=== PATIENT | female | born 1955 | race Caucasian/White ===

== ENCOUNTER → 2018-05-03 16:21 | Outpatient (CLI) | payer OTHER, SELFPAY ==
[2018-04-06 09:23] VITALS: BMI 33.7
== END ==
PROVIDERS: Family Provider Family Medicine; PCP Family Medicine; Referring Provider Otolaryngology Otolaryngology/Facial Plastic Surgery; Visit Provider Otolaryngology Otolaryngology/Facial Plastic Surgery
DX: J02.9 Acute pharyngitis, unspecified (principal)
CPT/HCPCS: 87070

== ENCOUNTER → 2018-05-13 07:35 | Outpatient (CLI) | payer OTHER, SELFPAY ==
[2018-04-06 09:23] VITALS: BMI 33.7
--- NOTE | 2018-05-13 07:38 | BI_ITS ---
MAMMOGRAPHY - BILATERAL SCREENING REASON FOR EXAM: Female, 62 years old. Routine annual screening examination. PERTINENT HISTORY: Grandmother with breast cancer. TECHNIQUE: Digital bilateral breast karen (3D mammographic acquisition) in the CC and MLO projections. 2-D mediolateral oblique (MLO) and craniocaudad (CC) views of both breasts were obtained. CAD: Full Field Digital Mammography with Computer Added Detection was performed. COMPARISON: Comparison is made with prior study dated November 09, 2015 and August 26, 2013. FINDINGS: Breast Composition: The breasts are heterogeneously dense, which may obscure small masses. There are no dominant masses or suspicious calcifications. Stable benign-appearing bilateral axillary lymph nodes. No other significant abnormalities are identified. There has been no significant change since the prior study. BI/SCREENING MAMM (CAD), BILAT IMPRESSION: Stable bilateral screening mammogram. Yearly follow-up mammogram recommended. (A) ASSESSMENT CATEGORY: BIRADS Category 2: Benign. A letter regarding these results will be sent to the patient by the facility within 30 days. Approximately 10% of breast cancers are not detected by mammography. A normal mammogram should not delay biopsy of a clinically suspicious abnormality. [id number] Electronically Signed: Shady Stone MD at 10:28 EST , Service support ,
== END ==
PROVIDERS: Family Provider Family Medicine; PCP Family Medicine; Referring Provider Family Medicine; Visit Provider Family Medicine
DX: Z12.31 Encounter for screening mammogram for malignant neoplasm of breast (principal)
CPT/HCPCS: 77063; 77067

== ENCOUNTER → 2018-07-02 10:18 | Outpatient (CLI) | payer OTHER, SELFPAY ==
[2018-04-06 09:23] VITALS: BMI 33.7
== END ==
PROVIDERS: Family Provider Family Medicine; PCP Family Medicine; Referring Provider Otolaryngology Otolaryngology/Facial Plastic Surgery; Visit Provider Otolaryngology Otolaryngology/Facial Plastic Surgery
DX: J32.9 Chronic sinusitis, unspecified (principal)
CPT/HCPCS: 87070; 87205

== ENCOUNTER → 2018-08-07 10:38 | Outpatient (CLI) | payer OTHER, SELFPAY ==
[2018-08-07 08:36] VITALS: BMI 33.7
== END ==
PROVIDERS: Family Provider Family Medicine; PCP Family Medicine; Referring Provider Physician Assistant; Visit Provider Physician Assistant
DX: J02.9 Acute pharyngitis, unspecified (principal)
CPT/HCPCS: 87081

== ENCOUNTER → 2019-03-04 15:21 | Outpatient (CLI) | payer OTHER, SELFPAY ==
[2019-03-02 08:35] VITALS: BMI 33.7
== END ==
PROVIDERS: Family Provider Family Medicine; PCP Family Medicine; Referring Provider Otolaryngology Otolaryngology/Facial Plastic Surgery; Visit Provider Otolaryngology Otolaryngology/Facial Plastic Surgery
DX: J32.9 Chronic sinusitis, unspecified (principal); J02.9 Acute pharyngitis, unspecified
CPT/HCPCS: 87070

== ENCOUNTER 2019-04-01 09:33 | Emergency (ER) | payer OTHER, SELFPAY ==
[2019-03-28 08:46] VITALS: BMI 33.7
[2019-04-01 09:34] VITALS: BP 174/96; PULSE 110; RESP 18; TEMP 36.1; O2SAT 99; BMI 33.3
--- NOTE | 2019-04-01 09:44 | RAD_ITS ---
STUDY: X-RAY CHEST REASON FOR EXAM: Female, 63 years old. Shortness of breath. Follow-up for possible pneumonia. Medication for high blood pressure. TECHNIQUE: Frontal and lateral views of the chest. COMPARISON: None. FINDINGS: Mild hyperexpansion with scarring at the left base. Healed granulomatous calcifications There is no demonstrated pleural abnormality. Borderline cardiomegaly. Normal mediastinum and arnold. Normal visualized pulmonary arteries. Normal visualized aortic arch and descending thoracic aorta. Thoracolumbar spondylosis. Normal visualized ribs, clavicles, and shoulders. There is no demonstrated abnormality of the visualized soft tissue structures of the upper abdomen. RAD/Chest PA and Lateral IMPRESSION: Borderline cardiomegaly with hyperexpansion and scarring at the left base. No acute finding. Electronically Signed: Madhu Chew MD at 10:21 EST , Service support ,
--- NOTE | 2019-04-01 09:44 | ED.VIS.GEN ---
History of Present Illness Chief Complaint: Cough Informant: Patient Onset: Weeks - 2 weeks Context: Gradual Onset Timing: Waxes and wanes Current Severity: Mild Maximum Severity: Moderate Narrative: Patient reports with cough and congestion for the last 2 weeks. She was seen in the now clinic on March 28. She was given a Z-Mckinley and Tessalon Perles. She states she felt like her symptoms initially improved, but have now worsened again over the past 2 days. She is now bringing up green-colored sputum. She denies having fever or chills at home. She has rare, occasional wheezing. She was seen at [facility] at [facility] today where she reportedly was febrile (99.5) with O2 sats of 92 to 95%. She was sent to the ER for an x-ray to rule out pneumonia. - Past Medical History (1) Acute bronchitis Status: Acute Past Medical History - Allergies and Home Meds Allergies/Adverse Reactions: Allergies clarithromycin [From Biaxin] Allergy (Verified 04/01/19 09:35) Unknown levofloxacin [From Levaquin] Allergy (Verified 04/01/19 09:35) Unknown Primary Care Physician: Buster Vargas MD [STAFF PHYSICIAN] - Prior records reviewed: Yes Smoking Status: Former smoker Review of Systems General: Denies: Chills, Fever Eyes: Denies: Visual changes - bilaterally ENT: Reports: Sore throat. Denies: Bilateral ear pain Cardiovascular: Denies: Chest pain Respiratory: Reports: Cough, Sputum. Denies: Dyspnea Gastrointestinal: Denies: Abdominal pain, Nausea, Vomiting, Diarrhea Genitourinary: Denies: Dysuria Musculoskeletal: Denies: Neck pain, Back pain Skin: Denies: Rash Neurological: Denies: Headache Hematologic: Denies: Easy bruising Allergy: Denies: Uticaria Physical Exam Vital Signs/Narrative: Vital Signs Temp Pulse Resp BP Pulse Ox 04/01/19 09:34 96.9 F L 110 H 18 174/96 H 99 Inital Vital Signs reviewed: Yes General: Well nourished, Well developed Head: Normocephalic Eyes: Perrl, EOMI ENT: Moist mucous membranes, No rhinorrhea, TM's clear, - - Mild posterior pharyngeal drainage Neck: Supple Cardiovascular: Regular rate, Regular rhythm Respiratory: No distress, CTA bilaterally Abdomen: Soft, Nontender Back: Nontender Extremities: Nontender Skin: Normal color, No rash Neurological: Alert, Oriented x3 Psychological: Normal affect Diagnostic/Tx/Re-eval Impressions Chest X-Ray 04/01/19 09:44 IMPRESSION: Borderline cardiomegaly with hyperexpansion and scarring at the left base. No acute finding. Electronically Signed: Madhu Chew MD at 10:21 EST , Service support , 04/01/19 09:44 Chest PA and Lateral [RAD] Stat - Medical Decision Making X-ray results are discussed with the patient. She is just completing her Z-Mckinley. She reports that the Tessalon Perles are not helping her cough. She will be written for cough syrup and given an albuterol inhaler she can use at home. She does report intermittent wheezing. She states the nurse practitioner from [facility] to discuss her blood pressure with her. She believes she has been using some [id number] cold medicine that is likely increasing her blood pressure. She will keep a close eye on this over the next week or 2. ED Disposition - Plan for ED Patient: Disposition: Home or Assisted Living Diagnosis: Bronchitis Instructions: BRONCHITIS, No Antibiotic (Adult) Prescriptions: Hydrocodone Bit/Homatropine [Hycodan Syrup] 5 ml PO Q6H PRN PRN #60 mls PRN Reason: Cough Transmission Status: Received by [id number] Albuterol Inhaler [Ventolin Hfa] 1 - 2 puff INHALATION Q4H PRN PRN #1 inhaler PRN Reason: Wheezing Transmission Status: Received by [facility] Referrals: Buster Vargas MD [STAFF PHYSICIAN] -
[2019-04-01 11:14] VITALS: RESP 16
== END 2019-04-01 11:16 | disposition home or self-care (01) ==
PROVIDERS: Emergency Provider Emergency Medicine
DX: J40 Bronchitis, not specified as acute or chronic (principal); Z87.891 Personal history of nicotine dependence
CPT/HCPCS: 71046; 99282

== ENCOUNTER → 2020-02-27 | Outpatient (CLI) | payer MEDICARE, SELFPAY | END | disposition home or self-care (01) | PROVIDERS: PCP Family Medicine; Referring Provider Family Medicine; Visit Provider Family Medicine | DX: J32.9 Chronic sinusitis, unspecified (principal) | CPT/HCPCS: 87635; U0003 ==

== ENCOUNTER → 2020-08-04 07:33 | Outpatient (CLI) | payer MEDICARE, SELFPAY ==
--- NOTE | 2020-08-04 07:37 | BI_ITS ---
MAMMOGRAPHY - BILATERAL SCREENING REASON FOR EXAM: Female, 65 years old. Routine annual screening examination. PERTINENT HISTORY: Grandmother with breast cancer. TECHNIQUE: Digital bilateral breast karen (3D mammographic acquisition) in the CC and MLO projections. 2-D mediolateral oblique (MLO) and craniocaudad (CC) views of both breasts were obtained. CAD: Full Field Digital Mammography with Computer Added Detection was performed. COMPARISON: Comparison is made with prior examination dated 05/13/2018 and 11/09/2015. FINDINGS: Breast Composition: The breasts are heterogeneously dense, which may obscure small masses. There are no dominant masses or suspicious calcifications. Stable small benign appearing bilateral axillary lymph nodes. No other significant abnormalities are identified. There has been no significant change since the prior study. BI/SCREENING MAMM (CAD), BILAT IMPRESSION: Stable bilateral screening mammogram. Yearly follow-up mammogram recommended. (A) ASSESSMENT CATEGORY: BIRADS Category 2: Benign. A letter regarding these results will be sent to the patient by the facility within 30 days. Approximately 10% of breast cancers are not detected by mammography. A normal mammogram should not delay biopsy of a clinically suspicious abnormality. [id number] Electronically Signed: Shady Stone MD at 9:19 EDT , Service support ,
== END ==
PROVIDERS: PCP Family Medicine; Referring Provider Family Medicine; Visit Provider Family Medicine
DX: Z12.31 Encounter for screening mammogram for malignant neoplasm of breast (principal)
CPT/HCPCS: 77067

== ENCOUNTER → 2020-12-15 | Outpatient (CLI) | payer MEDICARE, SELFPAY | END | disposition home or self-care (01) | LOC: LABSPEC 16:51 | PROVIDERS: PCP Family Medicine; Referring Provider Family Medicine; Visit Provider Nurse Practitioner Family | DX: Z20.822 Contact with and (suspected) exposure to COVID-19 (principal) | CPT/HCPCS: 87635; U0005; U0003 ==

== ENCOUNTER 2021-06-21 10:00 | Outpatient (RCR) | payer MEDICARE, SELFPAY ==
--- NOTE | 2021-02-22 16:16 | HP.OTEVAL ---
Patient's Visit Information ANN YAO is a 65 year old F, referred to Occupational Therapy by ANITA Salguero, with a diagnosis of right 5th displaced fx of 5th metacarpal. Date of Evaluation: 02/21/21 Occupational Therapist: Kylie Valdivia, ROSE/Connor, CHT - Subjective This 65 year old female was seen for OT eval with dx of right displaced fx of 5th metacarpal - pt states she fell on 01/09/21. pt states she is released to therapy and in need of custom orthosis to provide support and protection while fx is healing. Pt states she is limited with all ADLs and IADls due to pain and limited ROM - pt states she would like to return to her PLOF. 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 - Pain right hand 4 - ROM MP: right LF -10/45 right RF -5/45 left LF 0/90 left RF 0/90 PIP: right LF -5/30 right 0/60 left LF 0/95 RF 0/90 DIP: right LF 0/15 right RF 0/15 left RF o/50 left LF 0/50 ROM Comments: pt demo with limited right LF and RF ROM - Strength Tax Adjuster: right NT left 50# Lateral Pinch: right NT left 10# Tripod Pinch: right NT left 8# Strength Comments: will test strength at later date - Sensation Sensation Comments: denies - Quick DASH-Disab of Arm,Shoulder& Hand Quick DASH Score: 27.2725 - Goals Goal:: pt will demo at 10 weeks s/p a right cloth shrinking machine operator helper strength of 40# or greater to return to her PLOF with ADLs and IADls by d.c Goal:: pt wll demo the ability to form a composite fist with right hand to increase pts ability to manipulate coins, grasp small objects and use right UE for home mtg and cooking tasks by d.c Goal:: pt will report no pain greater than 2/10 with use of right hand with ADLs and IADls by d/c - Rehabilitation General Assessment: pt currently 6 weeks and 1 day from DOI. pt demo with limited ROM of left digits increasing need of assistance with ADLs and IADls. Pt would benefit from skilled OT services 2xweek for 6 weeks to return pt to PLOF. Today therapist arcenio. custom hand based orthosis to provide support and protection while fx completes healing. Pt demo understanding of orthosis use. Therapist also ed, pt on AROM exercise and edema control. pt demo understanding and agree to POC. Rehabilitation Potential: Good - Anticipated Interventions A/AAROM/PROM, Strengthening, Edema Control, Triggerpoint Release, Modalities, Orthoses, Joint Protection/Energy Conservation, Ergonomic Education, Education re assistive Equipment, Education re Diagnosis, Home Program - Visit Plan Frequency: 1-2x /Week Duration: 6 Weeks TEXT: Thank you for the opportunity to evaluate your patient. For Medicare and Medicare HMO plans, please review the plan of care and approve it. It will need to be FAXED BACK to us at [phone] for Medicare purposes. Please let me know if there are questions or concerns regarding this plan of care. Physician Signature: Date:
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
--- NOTE | 2021-06-14 09:11 | HP.OTDCSUM_ITS ---
It has been my pleasure to treat ANN YAO under orders from ANITA Salguero, for the diagnosis of right 5th displaced fx of 5th metacarpal for a total of 12 visit(s). Please see the following information for a summary of their discharge status. % Improvement: 95 Objective/Function: right LF MCP 80* increase from 60*. right LF PIP 90*. right LF DIP 50*. 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 pt has made good gains with her strength and ROM- pt reports she is 95% IND. 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 PROM. and place and hold. will check measurements for dc Discharge Comments: Pt was seen for 12 OT sessions - following a 5th metacarpal fx- pt doing well and has returned to her IND with ADLs and IADLs . pt agrees to cont. with HEP and agrees with D/c. If there are questions or concerns regarding this patient's occupational therapy, please fell free to call me at [phone]. Thank you for the referral of this patient. Sincerely, Kylie Valdivia, OTR/L, CHT
--- NOTE | 2021-06-21 10:21 | HP.PTDCSUM ---
It has been my pleasure to treat ANN YOA referred by ANITA Salguero, with the diagnosis of LOW BACK PAIN for a total of 10 visit(s). Discharge Date: 06/21/21 Please see the following information for a summary of their discharge status. Subjective: PATIENT REPORTS SHE IS DOING GOOD AND IS ROUTINELY DOING HER HEP. THINKS SHE FEELS READY TO BE DISCHARGED. LOW BACK Pain Intensity (Out of 10): 1 % Improvement: 90 Objective/Function: PATIENT WAS SEEN TODAY FOR RE-ASSESSMENT OF PROGRESS TOWARD THE SET PT GOALS AND THE NEED FOR FURTHER PHYSICAL THERAPY VS READINESS FOR DISCHARGE. PATIENT IS INDEP WITH A HEP AND REPORTS 90% IMPROVEMENT IN HER PAIN. UPON EXAM TODAY ALL PT GOALS HAVE BEEN MET. SHE IS A LITTLE TENTATIVE ABOUT BEING DISCHARGED WITHOUT FOLLOW UP IN A FEW WEEKS BUT I ASSURED HER SHE CAN BE REFERRED BACK TO PT NEEDED/APPRORIATE BY HER PCP. Goal 1:: DECREASE C/O LOW BACK AND RIGHT LE SX'S. Goal Progress: Goal Met Goal 2:: IMPROVE LIFTING, SITTING, TRAVEL AND HOMEMAKING FUNCTION Goal Progress: Goal Met Goal 3:: INSTRUCT IN PROPHYLAXIS Goal Progress: Goal Met Plan: D/C TO HEP AND PHYSICIAN FOLLOW UP NEEDED. PATIENT IS AGREEABLE. If there are questions or concerns regarding this patient's physical therapy, please feel free to call me at [phone]. Thank you for the referral of this patient. Sincerely, Griselda Hill, PT, Cert MDT Balance/Gait/Functional tests - Balance/Special Test Scores Oswestry Low Back Score: 2
== END 2021-06-21 10:41 | disposition home or self-care (01) ==
LOC: PT 10:00
PROVIDERS: PCP Family Medicine
DX: S62.309D Unspecified fracture of unspecified metacarpal bone, subsequent encounter for fracture with routine healing (principal); X58.XXXD Exposure to other specified factors, subsequent encounter
CPT/HCPCS: 97110; 97112; 97140; 97162; 97164; 97166; 97530; 97760

== ENCOUNTER → 2021-08-19 | Outpatient (CLI) | payer MEDICARE, SELFPAY | END | disposition home or self-care (01) | PROVIDERS: PCP Family Medicine; Visit Provider Family Medicine | DX: U07.1 COVID-19 (principal) | CPT/HCPCS: 87635; U0003; U0005 ==

== ENCOUNTER → 2022-12-20 | Outpatient (CLI) | payer MEDICARE, SELFPAY ==
[2022-12-20 13:10] LABS: ALB/GLOB Ratio 1.1 RATIO (0.9-2.4); AST(SGOT) 26 U/L (15-37); Alanine Aminotransfer ALT/SGPT 39 U/L (13-56); Albumin, Serum 3.9 g/dL (3.2-5.0); Alkaline Phosphatase 76 U/L (45-117); Anion Gap 8 (5-15); BUN 11 mg/dL (7-18); BUN/Creat Ratio 14.9 RATIO (10-20); Chloride 110 mmol/L (98-107); Creatinine, Serum 0.74 mg/dL (0.55-1.02); EST Glomerular Filtration Rate 83 mL/min (>60); Est Glom Filt Rate - Afr Amer 101 mL/min (>60); Globulin 3.5 g/dL (2.2-4.2); Glucose 110 mg/dL (74-106); Potassium 4.2 mmol/L (3.5-5.1); Protein, Total 7.4 g/dL (6.4-8.2); Sodium Level 141 mmol/L (136-145)
[2022-12-20 13:15] LABS: Microalbumin,Random Urine 25.1 mg/L (NO RANGE EST.); Microalbumin:Creatinine Ratio 10.7 mg/g CRE (<30 mg/g CRE)
== END | disposition home or self-care (01) ==
LOC: MFPLAB 11:02
PROVIDERS: PCP Family Medicine; Visit Provider Family Medicine
DX: I10 Essential (primary) hypertension (principal)
CPT/HCPCS: 36415; 80053; 82043; 82570

== ENCOUNTER → 2023-09-12 | Outpatient (CLI) | payer MEDICARE, SELFPAY ==
[2023-09-12 10:41] LABS: Erythrocyte Sedimentation Rate 30 mm/hr (0-30)
[2023-09-12 10:46] LABS: Absolute Lymphocyte Count 2.01 X10^3/uL (0.83-4.51); Absolute Neutrophil Count 2.2 X10^3/uL (2.0-7.7); Basophil# 0.05 X10^3/uL; Eosinophil# 0.15 X10^3/uL; Eosinophils% 3.1 % (0-5); Hematocrit 27.5 % (37-47); Hemoglobin 8.8 g/dL (12.0-15.0); Lymphocyte # 2.01 X10^3/ul (0.83-4.51); Lymphocyte % 40.9 % (19-41); Mean Corpuscular Hgb 31.3 pg (27.0-32.0); Mean Corpuscular Volume 97.9 fL (81-99); Mean Platelet Vol. 10.7 fl (6.2-12.0); Monocyte# 0.46 X10^3/uL; Monocyte% 9.4 % (0-10); NRBC Flagged by Analyzer 0 % (0-5); Neutrophil # 2.23 X10^3/uL (2.7-7.7); Neutrophil % 45.4 % (47-70); Platelet Count 491 K/mm3 (150-450); RBC Distribution Width CV 13.6 % (11.6-14.6); RBC Distribution Width SD 49.1 fl (35.1-43.9); Red Blood Count 2.81 M/mm3 (4.2-5.4); White Blood Count 4.9 K/mm3 (4.4-11.0)
[2023-09-12 11:48] LABS: ALB/GLOB Ratio 0.9 RATIO (0.9-2.4); AST(SGOT) 29 U/L (15-37); Alanine Aminotransfer ALT/SGPT 55 U/L (13-56); Albumin, Serum 3.5 g/dL (3.2-5.0); Alkaline Phosphatase 80 U/L (45-117); Anion Gap 8 (5-15); BUN 11 mg/dL (7-18); BUN/Creat Ratio 13.1 RATIO (10-20); CRP < 2.90 mg/L (0.0-3.0); Calcium,Total 9.3 mg/dL (8.5-10.1); Chloride 108 mmol/L (98-107); Creatinine, Serum 0.84 mg/dL (0.55-1.02); EST Glomerular Filtration Rate 71 mL/min (>60); Est Glom Filt Rate - Afr Amer 86 mL/min (>60); Glucose 111 mg/dL (74-106); Iron 16 ug/dL (50-170); Potassium 3.6 mmol/L (3.5-5.1); Protein, Total 7.5 g/dL (6.4-8.2); Sodium Level 139 mmol/L (136-145); T4 Free Direct 0.98 ng/dL (0.76-1.46)
== END | disposition home or self-care (01) ==
LOC: MFPLAB 08:09
PROVIDERS: PCP Family Medicine; Visit Provider Family Medicine
DX: K58.9 Irritable bowel syndrome, unspecified (principal); R53.81 Other malaise
CPT/HCPCS: 36415; 80053; 83540; 84439; 85025; 85652; 86140

== ENCOUNTER → 2024-04-24 | Outpatient (CLI) | payer MEDICARE, SELFPAY ==
--- NOTE | 2024-04-24 10:12 | BI_ITS ---
MAMMOGRAPHY - BILATERAL SCREENING REASON FOR EXAM: Female, 68 years old. Routine annual screening examination. PERTINENT HISTORY: Grandmother with breast cancer. TECHNIQUE: Digital bilateral breast shoshana (3D mammographic acquisition) in the CC and MLO projections. 2-D mediolateral oblique (MLO) and craniocaudad (CC) views of both breasts were obtained. CAD: Full Field Digital Mammography with Computer Added Detection was performed. COMPARISON: Comparison is made with prior study dated August 04, 2020 and May 13, 2018. FINDINGS: Breast Composition: The breasts are heterogeneously dense, which may obscure small masses. There are no dominant masses or suspicious calcifications. Stable small benign-appearing lateral axillary lymph nodes. No other significant abnormalities are identified. There has been no significant change since the prior study. BI/SCRN MAMM (CAD)W/SHOSHANA BILAT IMPRESSION: Stable bilateral screening mammogram. Yearly follow-up mammogram recommended. (A) ASSESSMENT CATEGORY: BIRADS Category 2: Benign. A letter regarding these results will be sent to the patient by the facility within 30 days. Approximately 10% of breast cancers are not detected by mammography. A normal mammogram should not delay biopsy of a clinically suspicious abnormality. [id number] Electronically Signed: Shady Stone MD at 11:10 EST ,
== END | disposition home or self-care (01) ==
LOC: OPBI 10:10
PROVIDERS: PCP Family Medicine; Referring Provider Family Medicine; Visit Provider Family Medicine
DX: Z12.31 Encounter for screening mammogram for malignant neoplasm of breast (principal); I10 Essential (primary) hypertension
CPT/HCPCS: 77063; 77067

== ENCOUNTER 2024-08-28 07:30 | Day surgery (SDC) | payer MEDICARE, SELFPAY ==
[2024-08-28] VITALS (7 sets, daily range): BP systolic 125–176; BP diastolic 57–85; PULSE 70–76; RESP 16–18; TEMP 36.1–36.6; O2SAT 98–99; BMI 38.9
[2024-08-28] MEDS: Lactated Ringers 1,000 ML 15 ML IV (08:01)
--- NOTE | 2024-08-28 08:12 | PRE.ANES_ITS ---
ASA Classification* ASA Classification ASA Classification: 2 (HTN, GERD, Anemia. Patient has elevated BP in preop. Please be mindful not to let her BP drop below SBP 100 during case.) Assessment & Plan Anesthesia* Anesthesia Assessment Anesthesia Assessment: Discussed sedation and/or anesthesia options, risks, benefits, and alternatives with patient/parents/legal guardian/POA. Questions invited. The patient/parents/legal guardian/POA seems to understand and agrees to proceed with anesthesia plan. Reviewed the physical assessment, medical history, allergy history and patient home medications list prior to surgery/procedure/anesthetic and documented any changes. Performed airway and anesthesia risk assessments. Anesthesia Type Anesthesia Type: General History Source History Obtained from:: Patient and Chart Anesthesia Focused Assessment* Temperature: 96.9 F Pulse Rate: 74 Blood Pressure: 176/73 Respiratory Rate: 18 Pulse Ox: 98 Oxygen Delivery Method: Room Air Airway Assessment Mouth opens: >3 cm Mallampati Score: II Teeth Condition: Intact Neck Range of motion (ROM): Full ROM Focused Labs Anesthesia Preop lab: CBC WBC 4.9 K/mm3 (4.4-11.0) 09/12/23 08:12 09/12/23 RBC 2.81 M/mm3 (4.2-5.4) L 09/12/23 08:12 09/12/23 Hgb 8.8 g/dL (12.0-15.0) L 09/12/23 08:12 09/12/23 Hct 27.5 % (37-47) L 09/12/23 08:12 09/12/23 Plt Count 491 K/mm3 (150-450) H 09/12/23 08:12 09/12/23 CHEMISTRY Potassium 3.6 mmol/L (3.5-5.1) 09/12/23 08:12 09/12/23 Sodium 139 mmol/L (136-145) 09/12/23 08:12 09/12/23 Magnesium 2.2 mg/dL (1.8-2.4) 05/13/13 08:59 05/13/13 BUN 11 mg/dL (7-18) 09/12/23 08:12 09/12/23 Creatinine 0.84 mg/dL (0.55-1.02) 09/12/23 08:12 09/12/23 Glucose 111 mg/dL (74-106) H 09/12/23 08:12 09/12/23 TSH 1.99 uIU/mL (0.358-3.74) 05/13/13 08:59 COAG Pre-Assessment Diagnosis/Proposed Procedure Planned Operative Procedure(s): COLONOSCOPY/EGD Anesthesia History 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 When Was Last Pacemaker Check QUESTION #4 FULL TEXT: You/Your Family Experience fever (hyperthermia) with Anesthesia Last Oral Intake Last Oral intake: Last Oral Intake NPO since 04:00 08/28/24 07:52 Meds taken in AM with sips of No 08/28/24 07:52 water? Meds patient instructed to take am of surgery PONV PONV - hydrology professor: PONV - hydrology professor Female Yes 08/27/24 12:30 HX of Motion Sickness No 08/27/24 12:30 HX of N/V After Surgery No 08/27/24 12:30 Non-Smoker Yes 08/27/24 12:30 Duration of Surgery greater No 08/27/24 12:30 than 60 minutes Number of Risk Factors 2 08/27/24 12:30 PONV Score Moderate Risk 08/27/24 12:30 Height & Weight Height & Weight: Anesthesia: Height & Weight Height 5 ft 4 in 08/28/24 07:52 Weight: 102.965 kg 08/28/24 07:52 Body Mass Index (BMI) 38.9 08/28/24 07:52 Respiratory Assessment Respiratory Assessment - hydrology professor: Respiratory Tract Infection Hx - hydrology professor Hx Respiratory Tract Infection No 08/27/24 12:30 STOP Sleep Apnea STOP Sleep Apnea - hydrology professor: STOP Sleep Apnea - hydrology professor Hx Hypertension Yes: CONTROLLED ON MED 08/27/24 12:30 Hx Sleep Apnea No 08/27/24 12:30 CPAP BIPAP Do you snore loudly (louder No 08/27/24 12:30 than talking or can be heard Do you often feel tired/ No 08/27/24 12:30 fatigued/ sleepy during daytime? Has anyone observed you stop No 08/27/24 12:30 breathing during sleep? STOP Results Negative 08/27/24 12:30 QUESTION #5 FULL TEXT : Do you snore loudly (louder than talking or can be heard through closed doors)? 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 Specify any problems Hx of Preganancy in last 3 No 08/27/24 12:30 Months Nurse Filling Out Transfusion VCHRISTIN 08/27/24 12:30 & Questions: Date: 08/27/24 08/27/24 12:30 Time: 12:31 08/27/24 12:30 Patient unable to answer at this time (ie. 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 professor: /Reproductive Hx- hydrology professor Hx Now Gestational Age (in weeks): EDC: Hx Hx Para Hx Section SAB Active Medications Active Medications: Current Medications Generic Name Dose Route Start Last Admin Trade Name Freq PRN Reason Stop Dose Admin Lactated Ringer's 1,000 mls @ 15 mls/hr 08/28/24 07:45 08/28/24 08:01 IV 15 mls/hr .Q48H JOSE DAVID Administration PFSH Medical History (Updated 08/27/24 @ 12:30 by Sharon White) Wears glasses Post-menopausal Cancer Anxiety Alcohol use Arthritis Back pain History of hiatal hernia History of IBS Gastric reflux Non-smoker Leg cramps Displaced fracture of fifth metacarpal bone of right hand Diarrhea Hemorrhoids HTN (hypertension) Home Medications ?Medication ?Instructions ?Recorded ?Last Taken ?Type multivitamin (Daily Multi-Vitamin 1 tab PO DAILY 01/1008/26/24 History tablet) bisoprolol 10 1 tab PO QDAY 08/30/2308/26 History mg-hydrochlorothiazide 6.25 mg tablet lansoprazole 15 mg capsule,delayed 15 mg PO DAILY PRN GERD 08/30/23 Unknown History release (Prevacid 24Hr) milk thistle 500 mg capsule 500 mg PO DAILY 08/30/23 0 08/26/24 History cyanocobalamin (vitamin B-12) 50 50 mcg PO DAILY 08/2708/26/24 History mcg tablet (Vitamin B-12) Allergy/AdvReac Type Severity Reaction Status Date / Time clarithromycin (From Biaxin) Allergy Unknown Verified 08/28/24 07:49 levofloxacin (From Levaquin) Allergy Unknown Verified 08/28/24 07:49 Social History Smoking Status: Former smoker alcohol intake: current alcohol intake frequency: a few times a week Alcohol type: wine Review of Systems (Anesthesia) ROS Narrative System reviewed and no additional complaints, except as documented. Physical Exam Const alert, oriented x3 and average body habitus Resp normal respiratory effort, normal air movement and clear to auscultation bilaterally Cardio regular rate, regular rhythm, no murmurs and diaphoretic
--- NOTE | 2024-08-28 08:20 | PCM.HP.STD ---
HPI - General General Date of Admission: 08/28/24 Date of Service: 08/28/24 Chief Complaint: Screening colonoscopy, intermittent bloating, cramping and intermittent abdominal pain. HPI Narrative Pt reports she is due for her screening colonoscopy. Has long hx of IBS. Reports intermittent abdominal pain, cramping, bloating. Occasional heartburn that is relieved with OTC Omeprazole. Reports daily diarrhea with up to 4 BM daily. Mostly in the morning. States she started oral iron in August due to a drop in hgb which has caused some constipation. Denies bloody or dark stools, dizziness, weakness or SOB. [facility] Medical History Wears glasses Post-menopausal Cancer Anxiety Alcohol use Arthritis Back pain History of hiatal hernia History of IBS Gastric reflux Non-smoker Leg cramps Displaced fracture of fifth metacarpal bone of right hand Diarrhea Hemorrhoids HTN (hypertension) Home Medications ?Medication ?Instructions ?Recorded ?Last Taken ?Type multivitamin (Daily Multi-Vitamin 1 tab PO DAILY 01/10/21 08/26/24 History tablet) bisoprolol 10 1 tab PO QDAY 08/30/23 08/26/24 History mg-hydrochlorothiazide 6.25 mg tablet lansoprazole 15 mg capsule,delayed 15 mg PO DAILY PRN GERD 08/30/23 Unknown History release (Prevacid 24Hr) milk thistle 500 mg capsule 500 mg PO DAILY 08/30/23 08/26/24 History cyanocobalamin (vitamin B-12) 50 50 mcg PO DAILY 08/27/24 08/26/24 History mcg tablet (Vitamin B-12) Allergy/AdvReac Type Severity Reaction Status Date / Time clarithromycin (From Biaxin) Allergy Unknown Verified 08/28/24 07:49 levofloxacin (From Levaquin) Allergy Unknown Verified 08/28/24 07:49 Social History Smoking Status: Former smoker alcohol intake: current alcohol intake frequency: a few times a week Alcohol type: wine ROS Constitutional Constitutional: Denies fatigue, fever(s), poor appetite, weight gain or weight loss Gastrointestinal Gastrointestinal: Denies belching, bloating, change in bowel habits, change in stool character, chewing difficulty, coffee ground emesis, constipation, cramping, diarrhea, dyspepsia, dysphagia, early satiety, excessive flatus, fecal incontinence, heartburn, hematemesis, hematochezia, hemorrhoids, loose stools, melena, nausea, odynophagia, rectal bleeding, tenesmus, vomiting or weight changes Vital Signs Vital Signs Vital Signs: 08/28/24 07:50 08/28/24 07:52 08/28/24 08:12 Temperature 96.9 F L 96.9 F L Temperature Source Temporal Pulse Rate 74 74 Respiratory Rate 18 18 Respiratory Pattern Normal Blood Pressure 176/73 H 176/73 H Blood Pressure Mean 107 Blood Pressure Source Monitor Blood Pressure Position Semi-Fowlers Pulse Ox 98 98 Oxygen Delivery Method Room Air Room Air Weight Weight: 227 lb Body Mass Index (BMI) 38.9 Physical Exam Const alert, oriented x3 and average body habitus Resp normal respiratory effort, normal air movement and clear to auscultation bilaterally Cardio regular rate, regular rhythm, no murmurs and diaphoretic Assessment & Plan Assessment/Plan (1) Anemia: (2) Abdominal cramping: (3) IBS (irritable bowel syndrome): (4) Screening for colon cancer: PLAN: Plan Assessment and Plan Assessment and Plan (1) IBS (irritable bowel syndrome): Status: Acute (2) Anemia: Status: Acute Plan: Ynes is a very pleasant 68-year-old with past medical history IBS and past medical history of polyps who developed a new onset anemia approximately 6 months ago. Hemoglobin was 13 and dropped down to 8.8 with a reactive thrombocytosis with a platelet count of 475. She was initiated on iron therapy and her hemoglobin did correct appropriately to 13.9. Her only complaint is that the iron makes her constipated. I recommended that she stop the iron and we check iron studies along with celiac DNA testing as she has been off gluten for approximately 12 years. We will perform an upper and lower endoscopy to evaluate her upper lower GI tract for any signs of GI blood loss. We will also do some antibody testing to workup her interbowel syndrome with diarrhea.
--- NOTE | 2024-08-28 08:30 | EGD_PTH ---
PATIENT: NAN YAO LOC: EN U#:[id number] AGE/SX: 69/F ROOM: RE08/28/[address]: Dr. Felipe Bar DO : 1955 BED: DIS: 08/28/2024 SPEC #: [id number] RECD: 08/28/24 12:49 STATUS: KOBI REDenzel #: [id number] REDDY: 08/28/24 08:[address]: Felipe Bar DEPT: SURGICAL PATHOLOGY RECD BY: Timothy Vasquez ENTERED: 08/28/24 14:00 SP TYPE: EGD BIOPSY OTHR DR: Robert Quintanilla MD Tissues: A - Duodenum, NOS B - Cecum, NOS Procedures: Surgery Specimen Level IV HEADER OPERATION: Colonoscopy, EGD, biopsy, polypectomy PRE-OP DIAGNOSIS: Anemia, abdominal cramping, irritable bowel syndrome, screening for colon cancer TISSUE SUBMITTED: A- Duodenum biopsy, B- Cecum polyp MICROSCOPIC DIAGNOSIS A. Small bowel, duodenum, biopsy: Normal villous architecture with mild intraepithelial lymphocytosis. See note. Note: This pattern of injury is etiologically nonspecific?and the differential diagnosis includes sensitivity to gluten and non-gluten proteins, small intestinal bacterial overgrowth, stasis related changes, infection, protein calorie malnutrition, tropical sprue, and medication injury (NSAIDs, Olmesartan / Benicar, Mycophenolic acid, Idelalisib, for example). If celiac disease is a clinical concern, additional clinical studies, such as tTG-IgA, are recommended. B. Colon, cecum, polyp, biopsy: Tubular adenoma. MICROSCOPIC DESCRIPTION Slides are reviewed. GROSS DESCRIPTION A. Received in formalin in a container labeled with the patient's name, date of , and duodenum biopsy are multiple dsouza-pink fragments of mucosal tissue measuring 0.8 x 0.4 x 0.2 cm in aggregate. Submitted in toto in A1. B. Received in formalin in a container labeled with the patient's name, date of , and cecum biopsy is a 0.3 x 0.3 x 0.3 cm fragment of dsouza-pink mucosal tissue. Submitted in toto in B1. [facility] 08-28-2024 CPT:[id number]
--- NOTE | 2024-08-28 09:20 | PCM.POST.ANE ---
Anesthesia: Postop Eval I Current Vital Signs Temperature: 97 F Pulse Rate: 76 Blood Pressure: 138/85 Respiratory Rate: 16 Pulse Ox: 99 Oxygen Delivery Method: Room Air Assessment Airway patent: Yes Spontaneous unlabored respirations: Yes Mental status: Awake and Calm nausea: No Vomiting: No Anesthesia Complication: No Fluid Hydration Crystalloid volume administer (ml): 500 Total IV fluid infused: 500 Progress Note Anesthesia document: Postop Eval 1 completed: Yes
--- NOTE | 2024-08-28 09:26 | POSTOPAN2_ITS ---
Anesthesia Postop Eval I Sum Postop Eval Completion status Anesthesia document: Postop Eval 1 completed: Yes Anesthesia Postop Eval I Summary Anesthesia Postop Eval I Summary: Anesthesia Postop Eval I: Assessment Summary Airway patent Yes 08/28/24 09:21 PROPAGATION MANAGER.TNES Spontaneous unlabored Yes 08/28/24 09:21 PROPAGATION MANAGER.TNES respirations Mental status Awake,Calm 08/28/24 09:21 PROPAGATION MANAGER.TNES nausea No 08/28/24 09:21 PROPAGATION MANAGER.TNES Vomiting No 08/28/24 09:21 PROPAGATION MANAGER.TNES Anesthesia Postop Eval I: Fluid Summary Crystalloid volume administer 500 08/28/24 09:21 PROPAGATION MANAGER.TNES (ml) Colloids volume administered ( ml) Blood Product volume administered (ml) Total IV fluid infused 500 08/28/24 09:21 PROPAGATION MANAGER.TNES Anesthesia Postop Eval I: Summary Notes Anesthesia Complication No 08/28/24 09:21 PROPAGATION MANAGER.TNES Anesthesia Complication Comment: Post-operative progress note Anesthesia: Postop Eval II Evaluation Mental status: Awake and Calm Pain Level: 0 nausea: No Vomiting: No Complications Anesthesia Complication: No
--- NOTE | 2024-08-28 09:26 | PCM.POSTANE2 ---
Anesthesia Postop Eval I Sum Postop Eval Completion status Anesthesia document: Postop Eval 1 completed: Yes Anesthesia Postop Eval I Summary Anesthesia Postop Eval I Summary: Anesthesia Postop Eval I: Assessment Summary Airway patent Yes 08/28/24 09:21 CUSTOMER MARKETING ASSISTANT.TNES Spontaneous unlabored Yes 08/28/24 09:21 CUSTOMER MARKETING ASSISTANT.TNES respirations Mental status Awake,Calm 08/28/24 09:21 CUSTOMER MARKETING ASSISTANT.TNES nausea No 08/28/24 09:21 CUSTOMER MARKETING ASSISTANT.TNES Vomiting No 08/28/24 09:21 CUSTOMER MARKETING ASSISTANT.TNES Anesthesia Postop Eval I: Fluid Summary Crystalloid volume administer 500 08/28/24 09:21 CUSTOMER MARKETING ASSISTANT.TNES (ml) Colloids volume administered ( ml) Blood Product volume administered (ml) Total IV fluid infused 500 08/28/24 09:21 CUSTOMER MARKETING ASSISTANT.TNES Anesthesia Postop Eval I: Summary Notes Anesthesia Complication No 08/28/24 09:21 CUSTOMER MARKETING ASSISTANT.TNES Anesthesia Complication Comment: Post-operative progress note Anesthesia: Postop Eval II Evaluation Mental status: Awake and Calm Pain Level: 0 nausea: No Vomiting: No Complications Anesthesia Complication: No
--- NOTE | 2024-08-28 09:29 | OP.CCLET_ITS ---
08/28/2024 Robert Quintanilla Md Re : Upper GI endoscopy procedure for Ynes Klein Dear [place] This procedure was performed on July. My impressions and recommendations are as follows: Impressions : - No gross lesions in the entire esophagus. - Erythematous mucosa in the gastric body. Biopsied. - Erythematous duodenopathy. Biopsied. Recommendations : - Discharge patient to home. - Resume previous diet. - Continue present medications. - Await pathology results. My findings are described in the full procedure note, which is enclosed. If I can be of further assistance, please feel free to contact me at . Sincerely, Felipe Bar, 08/28/2024 9:29:10 AM This report has been signed electronically.
--- NOTE | 2024-08-28 09:29 | OP.EGD_ITS ---
Patient Name: Ynes Klein Procedure Date: 08/28/2024 8:49 AM Date of : 1955 Age: 69 Procedure: Upper GI endoscopy Indications: Epigastric abdominal pain, Iron deficiency anemia Providers: Felipe Bar DO Referring MD: Robert Quintanilla Md Medicines: Monitored Anesthesia Care Patient Profile: This is a 69 year old female. Refer to note in patient chart for documentation of history and physical. Patient has symptoms of chronic abdominal cramping, chronic epigastric abdominal pain, chronic dyspepsia and chronic odynophagia. Complications: No immediate complications. Procedure: Pre-Anesthesia Assessment: - Prior to the procedure, a History and Physical was performed, and patient medications and allergies were reviewed. The patient is competent. The risks and benefits of the procedure and the sedation options and risks were discussed with the patient. All questions were answered and informed consent was obtained. Patient identification and proposed procedure were verified by the physician in the pre-procedure area. Mental Status Examination: alert and oriented. Airway Examination: normal oropharyngeal airway and neck mobility. Respiratory Examination: clear to auscultation. CV Examination: normal. Prophylactic Antibiotics: The patient does not require prophylactic antibiotics. Prior Anticoagulants: The patient has taken no anticoagulant or antiplatelet agents except for NSAID medication. ASA Grade Assessment: II - A patient with mild systemic disease. After reviewing the risks and benefits, the patient was deemed in satisfactory condition to undergo the procedure. The anesthesia plan was to use monitored anesthesia care (MAC). Immediately prior to administration of medications, the patient was re-assessed for adequacy to receive sedatives. The heart rate, respiratory rate, oxygen saturations, blood pressure, adequacy of pulmonary ventilation, and response to care were monitored throughout the procedure. The physical status of the patient was re-assessed after the procedure. After obtaining informed consent, the endoscope was passed under direct vision. Throughout the procedure, the patient's blood pressure, pulse, and oxygen saturations were monitored continuously. The Colonoscope was introduced through the mouth, and advanced to the fourth part of the duodenum. Small bowel enteroscopy was deemed necessary. The upper GI endoscopy was accomplished without difficulty. The patient tolerated the procedure well. Scope In: 8:56:00 AM Scope Out: 8:59:04 AM Total Procedure Duration Time 0 hours 3 minutes 4 seconds Findings: No gross lesions were noted in the entire esophagus. Patchy mildly erythematous mucosa without bleeding was found in the gastric body. Biopsies were taken with a cold forceps for histology. Verification of patient identification for the specimen was done. Estimated blood loss was minimal. Biopsies were taken with a cold forceps for Helicobacter pylori testing. Verification of patient identification for the specimen was done. Estimated blood loss was minimal. Patchy mildly erythematous mucosa without active bleeding and with no stigmata of bleeding was found in the entire duodenum. Biopsies were taken with a cold forceps for histology. Verification of patient identification for the specimen was done. Estimated blood loss was minimal. A medium-sized hiatal hernia was present. Impression: - No gross lesions in the entire esophagus. - Erythematous mucosa in the gastric body. Biopsied. - Erythematous duodenopathy. Biopsied. Recommendation: - Discharge patient to home. - Resume previous diet. - Continue present medications. - Await pathology results. Procedure Code(s): --- Professional --- 64723, Small intestinal endoscopy, enteroscopy beyond second portion of duodenum, not including ileum; with biopsy, single or multiple CPT copyright 2021 [employer]. All rights reserved. The codes documented in this report are preliminary and upon teacher education director review may be revised to meet current compliance requirements. Felipe Bar DO 08/28/2024 9:29:10 AM This report has been signed electronically. Number of Addenda: 0 Note Initiated On: 08/28/2024 8:49 AM
--- NOTE | 2024-08-28 09:31 | OP.COLON_ITS ---
Patient Name: Ynes Klein Procedure Date: 08/28/2024 8:59 AM Date of : 1955 Age: 69 Procedure: Colonoscopy Indications: Screening for colorectal malignant neoplasm Providers: Felipe Bar DO Referring MD: Robert Quintanilla Md Medicines: Monitored Anesthesia Care Patient Profile: This is a 69 year old female. Refer to note in patient chart for documentation of history and physical. Patient has symptoms of chronic abdominal cramping, chronic epigastric abdominal pain, chronic dyspepsia and chronic odynophagia. Last Colonoscopy: several years ago. Complications: No immediate complications. Procedure: Pre-Anesthesia Assessment: - Prior to the procedure, a History and Physical was performed, and patient medications and allergies were reviewed. The patient is competent. The risks and benefits of the procedure and the sedation options and risks were discussed with the patient. All questions were answered and informed consent was obtained. Patient identification and proposed procedure were verified by the physician in the pre-procedure area. Mental Status Examination: alert and oriented. Airway Examination: normal oropharyngeal airway and neck mobility. Respiratory Examination: clear to auscultation. CV Examination: normal. Prophylactic Antibiotics: The patient does not require prophylactic antibiotics. Prior Anticoagulants: The patient has taken no anticoagulant or antiplatelet agents except for NSAID medication. ASA Grade Assessment: II - A patient with mild systemic disease. After reviewing the risks and benefits, the patient was deemed in satisfactory condition to undergo the procedure. The anesthesia plan was to use monitored anesthesia care (MAC). Immediately prior to administration of medications, the patient was re-assessed for adequacy to receive sedatives. The heart rate, respiratory rate, oxygen saturations, blood pressure, adequacy of pulmonary ventilation, and response to care were monitored throughout the procedure. The physical status of the patient was re-assessed after the procedure. After I obtained informed consent, the scope was passed under direct vision. Throughout the procedure, the patient's blood pressure, pulse, and oxygen saturations were monitored continuously. The Colonoscope was introduced through the anus and advanced to the cecum, identified by appendiceal orifice and ileocecal valve. The colonoscopy was performed without difficulty. The patient tolerated the procedure well. The quality of the bowel preparation was adequate. The ileocecal valve, appendiceal orifice, and rectum were photographed. Scope In: 9:01:34 AM Scope Withdrawal Time 0 hours 14 minutes 9 seconds Scope Out: 9:18:57 AM Total Procedure Duration Time 0 hours 17 minutes 23 seconds Findings: The perianal and digital rectal examinations were normal. A 7 mm polyp was found in the cecum. The polyp was sessile. The polyp was removed with a hot snare. Resection and retrieval were complete. Verification of patient identification for the specimen was done. Estimated blood loss was minimal. Multiple small-mouthed diverticula were found in the recto-sigmoid colon, sigmoid colon and descending colon. Impression: - One 7 mm polyp in the cecum, removed with a hot snare. Resected and retrieved. - Diverticulosis in the recto-sigmoid colon, in the sigmoid colon and in the descending colon. Recommendation: - Discharge patient to home. - Resume previous diet. - Continue present medications. - Await pathology results. - Repeat colonoscopy in 5 years for surveillance. Procedure Code(s): --- Professional --- 34349, Colonoscopy, flexible; with removal of tumor(s), polyp(s), or other lesion(s) by snare technique CPT copyright 2021 [employer]. All rights reserved. The codes documented in this report are preliminary and upon blasting contract miner review may be revised to meet current compliance requirements. Felipe Bar DO 08/28/2024 9:31:10 AM This report has been signed electronically. Number of Addenda: 0 Note Initiated On: 08/28/2024 8:59 AM
--- NOTE | 2024-08-28 09:32 | OP.CCLET_ITS ---
08/28/2024 Robert Quintanilla Md Re : Colonoscopy procedure for Ynes Klein [facility] [place] This procedure was performed on July. My impressions and recommendations are as follows: Impressions : - One 7 mm polyp in the cecum, removed with a hot snare. Resected and retrieved. - Diverticulosis in the recto-sigmoid colon, in the sigmoid colon and in the descending colon. Recommendations : - Discharge patient to home. - Resume previous diet. - Continue present medications. - Await pathology results. - Repeat colonoscopy in 5 years for surveillance. My findings are described in the full procedure note, which is enclosed. If I can be of further assistance, please feel free to contact me at . Sincerely, Felipe Bar, 08/28/2024 9:31:10 AM This report has been signed electronically.
== END 2024-08-28 10:03 | disposition home or self-care (01) ==
LOC: EN 07:30 → AC 07:31 → EN 07:35 → AC 08:10
PROVIDERS: PCP Family Medicine; Referring Provider Family Medicine; Visit Provider Internal Medicine Gastroenterology
PROC: 0DJD8ZZ Inspection of Lower Intestinal Tract, Via Natural or Artificial Opening Endoscopic (ICD-10-PCS; CPT 45378; principal; 2024-08-28 08:25)
DX: Z12.11 Encounter for screening for malignant neoplasm of colon (principal); D12.0 Benign neoplasm of cecum; K57.30 Diverticulosis of large intestine without perforation or abscess without bleeding; D72.820 Lymphocytosis (symptomatic); K44.9 Diaphragmatic hernia without obstruction or gangrene; K58.0 Irritable bowel syndrome with diarrhea; D50.9 Iron deficiency anemia, unspecified; I10 Essential (primary) hypertension; Z79.899 Other long term (current) drug therapy; Z87.891 Personal history of nicotine dependence
CPT/HCPCS: 45385; 44361; 88305

== ENCOUNTER → 2025-01-08 | Outpatient (CLI) | payer MEDICARE, SELFPAY | END | disposition home or self-care (01) | LOC: LABSPEC 15:04 | PROVIDERS: PCP Family Medicine; Referring Provider Physician Assistant Surgical; Visit Provider Physician Assistant Surgical | DX: R82.90 Unspecified abnormal findings in urine (principal) | CPT/HCPCS: 87086; 87088 ==

== ENCOUNTER → 2025-03-01 | Outpatient (CLI) | payer MEDICARE, SELFPAY | END | disposition home or self-care (01) | LOC: LABSPEC 03-02 08:25 | PROVIDERS: PCP Family Medicine; Visit Provider Nurse Practitioner Family | DX: R82.90 Unspecified abnormal findings in urine (principal) | CPT/HCPCS: 87086; 87088 ==